=== PATIENT | female | born 1995 ===

== ENCOUNTER 2024-11-29 00:03 | Inpatient (IN) | payer OTHER, SELFPAY ==
[2024-11-29] MEDS ORDERED: hydrALAZINE 20 MG/ML VIAL SLOW IVP PRN (00:53)
[2024-11-29] MEDS ORDERED: Ondansetron PF 4 MG/2 ML Vial IVP PRN ×4 (00:53→23:32)
[2024-11-29] MEDS ORDERED: Lidocaine 1% (PF) 30 ML VIAL SC PRN (00:53)
[2024-11-29] MEDS ORDERED: Methylergonovine 0.2 MG/ML VIAL IM PRN (00:54)
[2024-11-29] MEDS ORDERED: Carboprost 250 MCG/ML AMP IM PRN (00:54)
[2024-11-29] MEDS ORDERED: Oxytocin 30 units/NS 500 ML 500 ML IV SCH (01:00)
[2024-11-29 01:05] LABS: Hematocrit 36.8 % (34.9-44.5); Hemoglobin 12.2 g/dL (12.0-15.5); Mean Corpuscular Hemoglobin 24.8 pg (27.0-33.0); Mean Corpuscular Volume 74.8 fL (81.6-98.3); Platelet Count 258 10x3/uL (150-450); Red Blood Cell (RBC) Count 4.92 10x6/uL (3.90-5.03); White Blood Cell (WBC) Count 14.08 10x3/uL (3.5-10.5)
[2024-11-29] MEDS ORDERED: Acetaminophen 325 MG TAB PO PRN (06:21)
[2024-11-29] MEDS ORDERED: diphenhydrAMINE 50 MG/ML VIAL IVP PRN ×2 (06:21→23:32)
[2024-11-29] MEDS ORDERED: Communication Order-Pharmacy FS SCH ×2 (06:30→23:45)
[2024-11-29 08:54] LABS: ALT (SGPT) 14 U/L (Less than 34); AST (SGOT) 17 U/L (11-34); Albumin 2.6 g/dL (3.1-4.5); Alkaline Phosphatase 242 U/L (40-110); Anion Gap 15 mmol/L (10-20); BUN (Urea Nitrogen) 8 mg/dL (7.0-18.7); Bilirubin, Total 0.4 mg/dL (0.3-1.2); Calc. Creatinine Clearance 0 mL/min (70-130); Calcium 8.7 mg/dL (7.8-10.44); Carbon Dioxide 16 mmol/L (22-29); Chloride 107 mmol/L (98-107); Globulin 2.9 g/dL (2.4-3.5); Glucose 120 mg/dL (70-105); Potassium 4.0 mmol/L (3.5-5.1); Sodium 134 mmol/L (136-145)
[2024-11-29 10:06] LABS: HIV (1/2) Antibody/Antigen NonReactive (NonReactive); Hep B Surf Ag - L&D NonReactive S/CO (NonReactive)
[2024-11-29 10:07] LABS: HIV 1/2 INDEX 0.25 S/CO (<1.00); Syphilis Antibody Index 0.08 S/CO (<1.00 Non-Reactive)
[2024-11-29] MEDS: Oxytocin 30 units/NS 500 ML 500 ML IV SCH (13:23)
[2024-11-29] MEDS: fentaNYL 2 mcg/Ropivacaine 0.2% Epidural 100 ML CADD EPIDURAL SCH (15:15)
[2024-11-29 18:35] VITALS: BMI 35.4
[2024-11-29] MEDS ORDERED: Bicitra 30 ML UDCUP PO PRN (22:18)
[2024-11-29] MEDS ORDERED: Famotidine/PF 20 mg/2ml Vial SLOW IVP PRN (22:18)
[2024-11-29] MEDS ORDERED: Azithromycin 500 MG in Sodium Chloride 0.9% 250 ML 250 ML IVPB SCH (22:30)
[2024-11-29] MEDS ORDERED: HYDROmorphone 0.5 MG/0.5 ML SYRINGE SLOW IVP PRN (23:32)
[2024-11-29] MEDS ORDERED: Meperidine HCl/PF 25 MG (1 mL) VIAL SLOW IVP PRN (23:32)
[2024-11-29] MEDS ORDERED: Ketorolac Tromethamine 30 MG (1 mL) VIAL IVP SCH (23:45)
[2024-11-30] MEDS ORDERED: diphenhydrAMINE 25 MG CAP PO PRN (01:47)
[2024-11-30] MEDS ORDERED: Ondansetron PF 4 MG/2 ML Vial IVP PRN (01:47)
[2024-11-30] MEDS ORDERED: hydrALAZINE 20 MG/ML VIAL SLOW IVP PRN (01:47)
[2024-11-30] MEDS ORDERED: Simethicone Chewable 80 MG TAB PO PRN (01:47)
[2024-11-30] MEDS ORDERED: Acetaminophen 325 MG TAB PO PRN (01:47)
[2024-11-30] MEDS ORDERED: Lanolin Ointment 7 GM TUBE TOP PRN (01:47)
[2024-11-30] MEDS ORDERED: Bisacodyl 10 MG SUPP PR PRN (01:47)
[2024-11-30] MEDS: Azithromycin 500 MG VIAL ONE (01:49)
[2024-11-30] MEDS: fentaNYL/Ropivacaine Epidural 100 ML ONE (01:49)
[2024-11-30] MEDS: CEFAZOLIN 2 GM VIAL ONE (01:50)
[2024-11-30] MEDS: PHENYLEPHRINE-NS 100 MCG/ML 10 ML SYRINGE ONE (01:51)
[2024-11-30] MEDS: Oxytocin 10 UNITS/ML VIAL ONE ×2 (01:51→01:52)
[2024-11-30] MEDS: Lidocaine 2% MPF 10 ML AMP (For Epidural Use) ONE (01:52)
[2024-11-30 04:21] LABS: Hematocrit 33.3 % (34.9-44.5); Hemoglobin 10.9 g/dL (12.0-15.5); Mean Corpuscular Hemoglobin 24.7 pg (27.0-33.0); Mean Corpuscular Volume 75.3 fL (81.6-98.3); Platelet Count 208 10x3/uL (150-450); Red Blood Cell (RBC) Count 4.42 10x6/uL (3.90-5.03); White Blood Cell (WBC) Count 12.13 10x3/uL (3.5-10.5)
[2024-11-30] MEDS: Ferrous Sulfate 325 MG TAB PO SCH (09:03)
[2024-11-30] MEDS: Ketorolac Tromethamine 30 MG (1 mL) VIAL IVP PRN (09:05)
[2024-11-30] MEDS ORDERED: Bupivacaine 0.25% HCL 30 ML VIAL ONE (11:54)
[2024-11-30] MEDS ORDERED: Lidocaine 2% MPF 10 ML AMP (For Epidural Use) ONE (11:54)
[2024-11-30] MEDS ORDERED: Bupivacaine HCl 0.5%/Epinephrine 1:200,000/PF 30 ml Vial ONE (11:54)
[2024-11-30] MEDS ORDERED: HYDROcodone/Acetaminophen 5/325 mg Tablet PO PRN (12:45)
[2024-11-30] MEDS: HYDROcodone/Acetaminophen 5/325 mg Tablet PO PRN (12:45)
[2024-11-30] MEDS: Ibuprofen 800 MG TAB PO SCH (20:49)
[2024-12-01] MEDS ORDERED: Ibuprofen 800 MG TAB PO SCH (06:00)
[2024-12-01] MEDS: Boostrix 0.5 ML (Tdap) VIAL (>/=7 yrs of age) IM ONE (09:19)
[2024-12-01 12:42] VITALS: TEMP 97.9
[2024-12-01 16:55] VITALS: BP 109/57
== END 2024-12-01 18:30 | disposition home or self-care (01) | DRG 788 ==
LOC: CSHLD/OP 00:03 → CSHLD 09:00 → CSHPP 11-30 01:40
PROVIDERS: ADMIT Student in an Organized Health Care Education/Training Program; ATTEND Student in an Organized Health Care Education/Training Program
PROC: 10D00Z1 Extraction of Products of Conception, Low, Open Approach (ICD-10-PCS; principal; 2024-11-29)
DX: O99.892 Other specified diseases and conditions complicating childbirth (principal); Z3A.39 39 weeks gestation of pregnancy; O99.344 Other mental disorders complicating childbirth; F41.9 Anxiety disorder, unspecified; O76 Abnormality in fetal heart rate and rhythm complicating labor and delivery; O64.0XX0 Obstructed labor due to incomplete rotation of fetal head, not applicable or unspecified; Z37.0 Single live birth; Z79.899 Other long term (current) drug therapy
CPT/HCPCS: 36415; 51702; 80053; 85027; 86780; 86850; 86900; 86901; 87340; 87389; 93005; 93010; 99285; J0665; J1885; J2274; J2590